=== PATIENT | male | born 1995 | race Caucasian/White ===

== ENCOUNTER 2017-03-01 12:20 | Inpatient (IN) ==
[2017-03-01] MEDS ORDERED: Mag Hydrox/Al Hydrox/Simeth 30 ML UDC PO PRN (12:29)
[2017-03-01] MEDS ORDERED: *HR* LORazepam 2 MG/ML VIAL IM PRN (12:29)
[2017-03-01] MEDS ORDERED: Acetaminophen 325 MG TABLET PO PRN (12:29)
[2017-03-01] MEDS ORDERED: Haloperidol Lactate 5 MG/ML VIAL IM PRN (12:29)
[2017-03-01] MEDS ORDERED: *HR* LORazepam 1 MG TABLET PO PRN (12:29)
[2017-03-01] MEDS ORDERED: MOM Conc 10 ML UD.LIQ PO PRN (12:29)
[2017-03-01] MEDS: hydrOXYzine pamoate 25 MG CAPSULE PO PRN (20:01)
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
[2017-03-02] MEDS: traZODone 50 MG TABLET PO PRN (23:33)
--- NOTE | 2017-03-03 14:21 | Psychiatry Progress Note ---
Date of Encounter: 03/03/17 Time of Encounter: 14:14 Subjective Interval history: Client states he is feeling a little better. Still has fleeting SI but does not feel at risk for acting on his thoughts. States if things get worse when he goes home he will come back in. Motivated to follow through with treatment. Has a counseling appointment scheduled for this . Staff spoke with mother and she is very supportive. Stated client is welcome to live with her. She described his anger issues in the same way client did. She stated the client would be fine and then all of a sudden he would explode in a volatile way (throw his phone across the room if he got a text he did not like). She indicated client always seemed zoned out when he would do these things which goes along with client's description of "blacking out." She described his anger episodes as sudden and unpredictable. Client has not demonstrated any volatility in the hospital. He has been pleasant and social. Out of his room and engaging in treatment. Taking Zoloft but had some GI distress from it. Discussed how this is a common side effect. Will monitor for another evening but client can potentially be discharged tomorrow if he is still feeling safe. Review of Systems Constitutional: Denies: fever, chills, weakness, weight change Eyes: Denies: eye pain, vision change Ears, Nose, Throat: Denies: ear pain, throat pain, dental pain, hearing loss, congestion Cardiovascular: Denies: chest pain, palpitations, dyspnea on exertion Respiratory: Denies: cough, dyspnea, wheezes Gastrointestinal: Denies: abdominal pain, nausea, vomiting, diarrhea, constipation Musculoskeletal: Denies: joint swelling, joint pain Neurological: Denies: headache, weakness, numbness, memory loss Objective: Exam Patient orientation: Yes Person, Yes Time, Yes Place Level of alertness: Alert Patient appearance: Appropriate, Well Groomed Behavior: calm, cooperative Psychomotor activity: Normal Eye contact: Maintains Eye Contact Mood description: Depressed Affect description: incongruent with mood Speech pattern: Other Speech volume: Normal Thought process: Linear, Goal Oriented Thought content: Yes Suicidal ideation, No Homicidal ideation, No Overt delusions Perceptual disturbances: No Auditory hallucinations, No Visual hallucinations Judgment: Fair Insight: Partial Results - Vital Signs Vital Signs: Temp Pulse Resp BP 97.7 F 61 16 132/77 03/03/17 09:00 03/03/17 09:00 03/03/17 09:00 03/03/17 09:00 Assessment and Plan (1) Major depression, recurrent Current visit: Yes Status: Acute Plan: Continue hospitalization, Close observation, Suicide Precautions per unit protocol, Encourage participation in unit milieu, Group Therapy, Monitor sleep, Monitor appetite Risks, benefits, side effects, alternatives discussed w/pt: Yes Patient agreeable to treatment: Yes Qualifiers: Active/Remission status: currently active Major depression episode severity : severe Psychotic features: without psychotic features Qualified Code(s): F33.2 - Major depressive disorder, recurrent severe without psychotic features (2) Intermittent explosive disorder Current visit: Yes Status: Acute Plan: Continue hospitalization, Close observation, Suicide Precautions per unit protocol, Encourage participation in unit milieu, Group Therapy, Monitor sleep, Monitor appetite Risks, benefits, side effects, alternatives discussed w/pt: Yes Patient agreeable to treatment: Yes Consult Discharge Plan - Plan Referrals: [facility] [Outside] - 03/05/17 9:00 am (The above appointment is with Bing Gallegos for outpatient mental health counseling services. You will also see Bing again on 03/16/2017 at 11:00am. You will see Magali Saenz for outpatient psychiatric assessment and medication management services on 2017 at 9:00 AM.)
[2017-03-03] MEDS: traZODone 50 MG TABLET PO PRN (21:18)
[2017-03-03] MEDS: hydrOXYzine pamoate 25 MG CAPSULE PO PRN (21:18)
[2017-03-04 09:19] VITALS: BP 124/79
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
== END 2017-03-04 19:35 | disposition home or self-care (01) | DRG 751 ==
LOC: 1ANU 12:20
PROVIDERS: ADMIT Psychiatry & Neurology Psychiatry; ATTEND Psychiatry & Neurology Psychiatry